=== PATIENT | female | born 1950 | race Caucasian/White ===

== ENCOUNTER 2018-04-27 07:18 | Day surgery (SDC) | payer MEDICARE, BC ==
[2018-04-23 14:26] LABS: BASOPHILS % (AUTO) 0.5 % (0-1); EOSINOPHILS # (AUTO) 0.1 X10'3 (0-0.9); EOSINOPHILS % (AUTO) 1.3 % (0-6); LYMPHOCYTES # (AUTO) 1.4 X10'3 (1.1-4.8); LYMPHOCYTES % (AUTO) 28.8 % (21-51); MEAN CORPUSCULAR HEMOGLOBIN 32.3 PG (27.0-31.0); MEAN CORPUSCULAR HGB CONC 34.9 % (33.0-36.5); MEAN CORPUSCULAR VOLUME 92.6 FL (78-98); MEAN PLATELET VOLUME 6.1 FL (7.4-10.4); MONOCYTES # (AUTO) 0.4 X10'3 (0-0.9); MONOCYTES % (AUTO) 7.9 % (2-12); NEUTROPHILS # (AUTO) 2.9 X10'3 (1.8-7.7); NEUTROPHILS % (AUTO) 61.5 % (42-75); PRE OP HEMATOCRIT 36.4 % (35.0-45.0); PRE OP HEMOGLOBIN 12.7 g/dL (12.0-16.0); PRE OP PLATELET COUNT 260 X10'3 (140-440); RED BLOOD COUNT 3.93 X10'6 (4.20-5.60); RED CELL DISTRIBUTION WIDTH 14.1 % (11.5-14.5)
[2018-04-23 14:31] LABS: CLARITY,URINE CLEAR (Clear); COLOR,URINE YELLOW (Yellow); GLUCOSE, URINE NEGATIVE (Neg); KETONES,URINE NEGATIVE (Neg); LEUKOCYTE ESTERASE ,URINE NEGATIVE (Neg); NITRITES, URINE NEGATIVE (Neg); OCCULT BLOOD,URINE NEGATIVE (Neg); PH,URINE 6.5 (4.8-8.0); PROTEIN,URINE NEGATIVE (Neg); UROBILINOGEN,URINE 0.2 E.U/dL (0.2-1.0)
[2018-04-23 14:38] LABS: UA COLLECTION TYPE CLN CATCH MIDSTREAM
[2018-04-23 14:42] LABS: ALBUMIN 4.1 G/DL (3.4-5.0); ALBUMIN/GLOBULIN RATIO 1.2 (1.1-1.5); ALKALINE PHOSPHATASE 120 IU/L (46-116); BLOOD UREA NITROGEN 13 MG/DL (7-18); CALCIUM 8.9 MG/DL (8.5-10.1); CHLORIDE 94 MMOL/L (99-107); CREATININE 0.65 MG/DL (0.40-0.90); PRE OP ALT 29 U/L (30-65); PRE OP ANION GAP 3 (8-16); PRE OP AST 21 U/L (10-37); PRE OP BILIRUB, TOTAL 0.2 MG/DL (0.0-1.0); PRE OP GLUCOSE 90 MG/DL (70-104); PRE OP POTASSIUM 3.9 MMOL/L (3.4-5.1); TOTAL CARBON DIOXIDE 31.1 MMOL/L (24-32); TOTAL PROTEIN 7.4 G/DL (6.4-8.2); eGFR 90 ML/MIN
[2018-04-23 14:46] LABS: PRE OP SODIUM 128 MMOL/L (135-145)
[2018-04-27] VITALS (11 sets, daily range): BP systolic 129–140; BP diastolic 69–79
[~2018-04-27] VITALS: Ht 162.6 cm; Wt 71.4 kg
[~2018-04-27 07:18] MED LIST: ACET-2119 PO; CALCIUM PO; CHOL10002 PO; Cefazolin 2GM/50ML dext iso,osmotic IVPB IV ONE; DIPH25CA83 PO; MULT-933 PO; famotidine 20mg tablet PO ONE; ringers solution, lacted 1,000 ML IV SCH
[2018-04-27 08:10] LABS: ISTAT ANION GAP 11 (8-12); ISTAT BUN 11 mg/dL (6-19); ISTAT CL 94 mmol/L (99-107); ISTAT CREATININE 0.6 mg/dL (0.6-1.1); ISTAT GLUCOSE 90 mg/dL (70-104); ISTAT HGB 13.3 g/dl (12.0-16.0); ISTAT Hct 39 %PCV (35-48); ISTAT IONIZED CALCIUM 1.26 mmol/L (1.03-1.32); ISTAT K 4.4 mmol/L (3.5-5.1); ISTAT NA 133 mmol/L (135-145); ISTAT TOTAL CO2 28 mmol/L (24-32); ISTAT eGFR > 90 ML/MIN; POC BUN/CREATININE RATIO 18.3 (6.6-38.0)
[2018-04-27] MEDS ORDERED: morphine 4 MG/ML inj SYRINge IV PRN ×2 (08:55)
[2018-04-27] MEDS ORDERED: ondansetron/PF 4mg/2ml inj IV PRN (08:55)
[2018-04-27] MEDS ORDERED: meperidine/PF 25mg/ml syringe IV PRN ×2 (08:55)
[2018-04-27] MEDS ORDERED: proCHLORperazine 10 MG/2 ml inj IV PRN (08:55)
[2018-04-27] MEDS ORDERED: ringers solution, lacted 1,000 ML IV SCH (08:55)
[2018-04-27] MEDS ORDERED: BUPIVAcaine/PF 2.5mg/ml (0.25%) 10ml vial ONE (09:45)
[2018-04-27] MEDS ORDERED: ceFAZolin 1000mg inj ONE (09:45)
[2018-04-27] MEDS ORDERED: dexamethasone sod phosphate 10mg/ml inj ONE (09:57)
[2018-04-27] MEDS ORDERED: sevoflurane 250ml liquid IH ONE (09:57)
[2018-04-27] MEDS ORDERED: ketorolac trometh. 30mg/ml inj. ONE (09:57)
[2018-04-27] MEDS ORDERED: fentaNYL/PF 50MCG/1 ML 2ML syringe ONE (10:02)
[2018-04-27] MEDS ORDERED: midazolam 2 mg/2 ml injection ONE (10:02)
[2018-04-27] MEDS ORDERED: propofol inj 20 ML IV ONE (10:05)
[2018-04-27] MEDS ORDERED: ondansetron/PF 4mg/2ml inj ONE (10:25)
[2018-04-27] MEDS: meperidine/PF 25mg/ml syringe IV PRN ×2 (11:20→11:29)
[2018-04-27] MEDS ORDERED: HYDROcodone/acetaminophen 10/325mg tab PO ONE (12:15)
== END 2018-04-27 12:46 | disposition home or self-care (01) ==
LOC: PAS 07:18
PROVIDERS: ATTEND Surgery
DX: K43.9 Ventral hernia without obstruction or gangrene (principal); J44.9 Chronic obstructive pulmonary disease, unspecified; M19.90 Unspecified osteoarthritis, unspecified site; Z72.89 Other problems related to lifestyle; Z88.4 Allergy status to anesthetic agent; Z85.828 Personal history of other malignant neoplasm of skin; Z91.048 Other nonmedicinal substance allergy status; Z90.710 Acquired absence of both cervix and uterus; Z79.891 Long term (current) use of opiate analgesic; Z79.899 Other long term (current) drug therapy; Z98.890 Other specified postprocedural states
CPT/HCPCS: 36415; 49560; 49568; 80047; 81003; 85025; 93005; A6449; C1781; J0690; J1100; J1885; J2175; J2250; J2405; J2704; J3010; J3490; J7120; 80053; 88302; A7000